=== PATIENT | male | born 1970 | race Caucasian/White ===

== ENCOUNTER → 2017-10-08 | Outpatient (CLI) | payer OTHER ==
[~2017-10-08] MED LIST: ANDRODERM1 EAC3 TRANSDERM; LIPITOR 20 MG T20 M1 PO; LISINOPRIL-HCTZ PO; METFORMIN HCL500 MG PO; PRADAXA150 MG PO; TAMBOCOR 100 M100 M1 PO; TOPROL XL25 MG PO; WELLBUTRIN XL150 MG PO; ZESTORETIC 10-1 EACH PO
[2017-10-08 08:49] LABS: HEMATOCRIT 46.6 % (42.0-52.0); HEMOGLOBIN 16.2 gm/dL (14.0-18.0); MCH 31.2 pg (26.0-34.0); MCHC 34.7 g/dL (28.0-37.0); MCV 89.8 fL (80.0-100.0); RBC 5.19 mil/uL (4.50-6.00); RDW 14.1 % (10.5-14.5); WBC 10.2 thou/uL (4.0-11.0)
[2017-10-08 09:12] LABS: ALBUMIN 4.1 g/dL (3.4-5.0); CALCIUM 8.8 mg/dL (8.5-10.1); CREATININE 1.1 mg/dL (0.7-1.3); POTASSIUM 4.1 mmol/L (3.5-5.1); TOTAL BILIRUBIN 0.3 mg/dL (<0.1-1.0); TOTAL PROTEIN 7.1 g/dL (6.4-8.2)
== END ==
LOC: CAT 08:28
PROVIDERS: Internal Medicine Cardiovascular Disease
DX: I48.91 Unspecified atrial fibrillation (principal)

== ENCOUNTER 2017-10-11 06:31 | Observation (INO) | payer OTHER ==
[2017-10-11] VITALS (7 sets, daily range): BP systolic 116–143; BP diastolic 62–87
[~2017-10-11] VITALS: Ht 182.9 cm; Wt 123.6 kg
--- NOTE | ~2017-10-11 | EKG ---
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 MARTIN : 1970 Requested By: Peter Bowman Order Number: [id number] MD: Nura Moser Measurements Intervals [place] Rate: 82 P: 51 UT: 145 QRS: -5 QRSD: 103 T: 18 QT: 373 QTc: 436 Interpretive Statements Sinus rhythm Abnormal R-wave progression, early transition Probable left ventricular hypertrophy Baseline wander in lead(s) V3 No previous ECG available for comparison Electronically Signed On 10-11-2017 9:39:13 CDT by Nura Moser [email or web address] <ELECTRONICALLY SIGNED> By: Nura Moser MD, [facility] 10/11/17 0939 4 4 Nura Moser MD, [facility] /EPI
--- NOTE | ~2017-10-11 | D ---
[facility] [place] [address] DISCHARGE SUMMARY Name: JOSE SOLOMON Room #: 212-[address] [facility] Basia Rivas#: [id number] Admission: 10/11/17 Attend Phys: Peter Bowman MD Discharge: 10/12/17 Date of : 68 Report #: [id number] THIS REPORT FOR: //name// CC: Peter Bowman Physician staff JOSELIN POLO DISCHARGE DIAGNOSIS: Atrial fibrillation. DISCHARGE PROCEDURE: AFib ablation. HISTORY: The patient is a 46-year-old with history of atrial fibrillation, who is here for an ablation. His ablation was successful with isolation of the 4 pulmonary veins with no complications. HOSPITAL COURSE: The patient was monitored on telemetry overnight. He remained in sinus rhythm. Post-procedure, he did have some mild inspiratory chest pain that was likely related to freezing of the pericardium, which is not unusual. He did well overnight. Denied any shortness of breath. He thinks he is coming down with a cold, which has been going on for a few weeks, but no fevers or chills. PHYSICAL EXAMINATION: HEART: Regular rate and rhythm. LUNGS: Clear to auscultation bilaterally. ABDOMEN: Soft, nontender. EXTREMITIES: No clubbing, cyanosis, edema. Telemetry revealed sinus rhythm. As such, the patient was deemed stable for discharge home and he will continue on his current Pradaxa 150 mg b.i.d. and we sent him home with a prescription for flecainide 100 b.i.d. Discharge instructions were reviewed and he will follow up with me in clinic in 3 months. <ELECTRONICALLY SIGNED> By: Peter Bowman MD 10/14/17 0828 0737 0849 Peter Bowman MD /nt
--- NOTE | ~2017-10-11 | P ---
[facility] [place] [address] PROCEDURE REPORT Name: JOSE SOLOMON Room #: 212-P [facility] Basia Rivas#: [id number] Admission: 10/11/17 Attend Phys: Peter Bowman MD Discharge: 10/12/17 Date of : 68 Report #: [id number] THIS REPORT FOR: //name// CC: Peter Bowman Physician staff JOSELIN POLO PREOPERATIVE DIAGNOSIS: Atrial fibrillation. POSTOPERATIVE DIAGNOSIS: Atrial fibrillation. HISTORY: The patient is a 46-year-old with a history of AFib who is here for an ablation. PROCEDURES PERFORMED: 1. Atrial fibrillation ablation, CPT code 78515. 2. 3D mapping, CPT code 50411. 3. Intracardiac echo, CPT code 47850. ANESTHESIA: The patient underwent general anesthesia with no anesthesia related complications. DESCRIPTION OF PROCEDURE: The patient underwent informed consent. We discussed the details of the procedure including the risk, which include, but not limited to bleeding, vascular damage, stroke, OR as well as cardiac perforation. He understood these risks and is willing to proceed. The patient was brought to the EP laboratory in a fasting and sedated state and prepped and draped in a sterile fashion. I obtained access to the right femoral vein x 3, placing an 8-Greenlandic, 9-Greenlandic and 7-Greenlandic locking sheath using the modified Seldinger technique. Next, under fluoroscopy, I placed a decapolar catheter easily in the coronary sinus and an ICE catheter into the right atrium. The patient had a cardiac CT scan prior to the procedure, which showed four pulmonary veins including an additional vein located along the roof of the right atrium, which was of very small caliber. Next, using intracardiac ultrasound I created a 3D geometry of the left atrium and this was merged with the cardiac CT scan. Next, the patient was systemically heparinized and a transseptal was performed using an SL1 sheath and [place] needle. The patient had a nice thin interatrial septum and that was easy to cross. Next, I opened up a Lasso catheter and we created a 3D geometry of the left atrium and also created a voltage map which showed activity of all four pulmonary veins. With intracardiac ultrasound, I could not really find where this extra small vein was coming off the roof. Next, I exchanged my SL1 sheath for the cryo sheath and placed the cryoballoon into the left atrium. I performed two 4-minute freezes in the left superior pulmonary vein and this vein would not isolate. The maximal minus temperatures were -37 degrees on the first freeze and -41 degrees on the second freeze. I therefore turned my attention to the left inferior [address] [address] PROCEDURE REPORT Name: JOSE SOLOMON Room #: 212-P [facility] Basia Rivas#: [id number] Admission: 10/11/17 Attend Phys: Peter Bowman MD Discharge: 10/12/17 Date of : 68 Report #: [id number] pulmonary vein and I performed a 4-minute freeze with no isolation of the vein. I then performed a second freeze and the attempts got very cold, but the vein isolated within 13 seconds, so we only performed a 40 second freeze in that vein. I then performed a second freeze of 4 minutes' duration with a maximal minus temperature of -35 degrees. I then went back to the left superior pulmonary vein and this was still connected. I therefore made some balloon adjustments and we isolated this vessel within 10 seconds of its third freeze. The maximal minus temperature was -55 degrees and we stayed on for 120 seconds. I therefore performed one additional freeze with the Achieve still located in the left superior pulmonary vein, but froze along the roof region where potentially the additional roof vein was located. We did a 4-minute freeze in this location with a maximal minus temperature of -32 degrees. I then turned my attention to the right superior pulmonary vein. I performed a 4-minute freeze and a 3-minute freeze, but there was no isolation. The maximal minus temperatures on these freezes were -37 degrees. I performed an additional freeze at a slightly different angle and this was for a period of 3 minutes. I then performed a fourth freeze where isolation occurred within 12 seconds and we came off after 77 seconds. We then turned our attention to the right inferior pulmonary vein. The first freeze was only 60 seconds in duration as our attempts were not that good. I then performed a second freeze of 4 minutes' duration where the vein was isolated within 100 seconds. I performed one additional freeze of 4 minutes' duration. All the veins were interrogated with an Achieve and they demonstrated entrance and exit block. I then placed a Lasso catheter back into the left atrium and we performed another voltage map which demonstrated that we essentially had created a wide circumferential ablation of the four pulmonary veins. As such, the procedure was concluded. Using intracardiac ultrasound, I verified there was no pericardial effusion. The patient received systemic protamine and once the ACT was within acceptable range, all catheters and sheaths were pulled. Hemostasis was obtained and the patient awoke neurologically and hemodynamically intact with no complications. CONCLUSIONS: 1. Successful AFib ablation with isolation of the four pulmonary veins. 2. Small vessel arising from the roof of the left atrium was small caliber and of unknown clinical significance and therefore attempts to isolate were not performed. <ELECTRONICALLY SIGNED> By: Peter Bowman MD 10/14/17 0829 1101 1300 Peter Bowman MD /josy
--- NOTE | ~2017-10-11 | EKG ---
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 HERNANDEZ : 1970 Requested By: Peter Bowman Order Number: [id number] MD: Nura Moser Measurements Intervals [place] Rate: 96 P: 66 [place]: 141 QRS: -3 QRSD: 83 T: 19 QT: 361 QTc: 457 Interpretive Statements Sinus rhythm No significant abnormality Compared to ECG 10/11/2017 07:25:44 Early R-wave progression is no longer present Electronically Signed On 10-12-2017 8:31:18 CDT by Nura Moser [email or web address] <ELECTRONICALLY SIGNED> By: Nura Moser MD, [facility] 10/12/17 0831 1533 1533 Nura Moser MD, [facility] /EPI
[2017-10-11 07:41] LABS: ABSOLUTE NEUTROPHILS 5.5 thou/uL (1.4-8.2); BASOPHILS 0.6 % (0.0-2.0); EOSINOPHILS 5.6 % (0.0-3.0); HEMATOCRIT 44.5 % (42.0-52.0); HEMOGLOBIN 15.2 gm/dL (14.0-18.0); LYMPHOCYTES 27.6 % (24.0-44.0); MCH 30.5 pg (26.0-34.0); MCHC 34.2 g/dL (28.0-37.0); MCV 89.2 fL (80.0-100.0); MONOCYTES 8.3 % (1.0-8.0); PLATELET COUNT 172 thou/uL (150-400); POLYS 57.9 % (36.0-66.0); RBC 4.99 mil/uL (4.50-6.00); RDW 13.8 % (10.5-14.5); WBC 9.5 thou/uL (4.0-11.0)
[2017-10-11] MEDS ORDERED: LIPITOR 20 MG T20 M1 PO (07:43)
[2017-10-11] MEDS ORDERED: ZESTORETIC 10-1 EACH PO (07:44)
[2017-10-11] MEDS ORDERED: METFORMIN HCL500 MG PO (07:45)
[2017-10-11] MEDS ORDERED: TOPROL XL25 MG PO (07:45)
[2017-10-11] MEDS ORDERED: ANDRODERM1 EAC3 TRANSDERM (07:46)
[2017-10-11] MEDS ORDERED: PRADAXA150 MG PO (07:47)
[2017-10-11] MEDS ORDERED: WELLBUTRIN XL150 MG PO (07:47)
[2017-10-11 07:48] LABS: CALCIUM 9.3 mg/dL (8.5-10.1); CREATININE 0.9 mg/dL (0.7-1.3); POTASSIUM 3.8 mmol/L (3.5-5.1)
[2017-10-11 07:56] LABS: ALBUMIN 3.8 g/dL (3.4-5.0); TOTAL BILIRUBIN 0.2 mg/dL (<0.1-1.0); TOTAL PROTEIN 7.1 g/dL (6.4-8.2)
[2017-10-11 07:59] LABS: APTT 29.1 Seconds (24.5-32.8); PROTIME 9.4 Seconds (9.3-11.4)
[2017-10-11] MEDS ORDERED: LISINOPRIL-HCTZ PO (14:33)
[2017-10-12 04:53] VITALS: BP 132/87
[2017-10-12 07:08] VITALS: BP 138/91
[2017-10-12] MEDS ORDERED: TAMBOCOR 100 M100 M1 PO (07:27)
[2017-10-12 09:32] VITALS: BP 138/91
[2017-10-12 09:41] VITALS: BP 138/91
== END 2017-10-12 10:15 | disposition home or self-care (01) ==
LOC: CATH 06:31 → 2N 11:02 → ENTRNSPT 10-12 10:10 → 2N 10-12 10:15 → EDTRNSPTSTS 10-12 10:18 → CATH 10-15 11:15
PROVIDERS: Internal Medicine Cardiovascular Disease
DX: I48.91 Unspecified atrial fibrillation (principal); R07.9 Chest pain, unspecified; J00 Acute nasopharyngitis [common cold]; Z79.899 Other long term (current) drug therapy
CPT/HCPCS: 62110; 62900; 65020; 65040; 65043; 70005